=== PATIENT | female | born 1955 | race African-American/Black ===

== ENCOUNTER → 2017-02-07 | Day surgery (SDC) | payer MEDICARE, OTHER ==
[~2017-02-07] MED LIST: ALPR0.25 PO; AMLO5TAB4 PO; ATROPINE; CLOP75TA PO; DICL100G18 TP; DIPH50CA PO; DOCU100C20 PO; FENT1PAT13 TP; GABA-585 PO; GABA800T2 PO; HYDR-2758 PO; HYDR-2762 PO; LANS30CA66 PO; LISI40TA PO; LORA0.5T PO; MAGN400T3 PO; MELA3TAB2 PO; METH10TA2 PO; METH5TAB2 PO; METO25TA4 PO; METO50TA2 PO; NITR100C62 PO; OMEG1CAP38 PO; OXYC1TAB8 PO; POLY17PO29 PO; POLY255P PO; POTA20TA12 PO; PREG50CA PO; PROPOFOL 20 ML IV ONE; SULF15DR5 EACHEYE; ZOLP5TAB PO
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
--- NOTE | 2017-02-07 14:44 | PDOC4 ---
PROCEDURE Procedure EGD/PEG replacement. IND: failing g-tube. Meds: per anesthesia Findings: E--normal. G--normal with old PEG in place. D--normal bulb. --Old G-tube cut near skin after snared and removed orally. New tube in old stoma uneventfully. Queen[place]. well. IMP: Successful g-tube replacement. REC: Resume meds, diet per tube. Use liquid preps whenever possible and flush tube with water qs to clear after meds. Replace tube prn. SANDRA CONTRERAS MD Feb 07, 2017 14:44
[2017-02-07 15:10] VITALS: BP 171/88
== END | disposition home or self-care (01) ==
LOC: SURG 13:59
PROVIDERS: ATTEND Internal Medicine Gastroenterology
DX: Z43.1 Encounter for attention to gastrostomy (principal); Z93.1 Gastrostomy status; J44.9 Chronic obstructive pulmonary disease, unspecified; I10 Essential (primary) hypertension; F17.200 Nicotine dependence, unspecified, uncomplicated; Z88.6 Allergy status to analgesic agent; Z87.39 Personal history of other diseases of the musculoskeletal system and connective tissue; Z88.0 Allergy status to penicillin; Z87.440 Personal history of urinary (tract) infections
CPT/HCPCS: 43246; J2704